=== PATIENT | female | born 1945 | race Caucasian/White ===

== ENCOUNTER 2024-01-30 18:17 | Emergency (ER) | payer MEDICARE, SELFPAY ==
[2024-01-30 18:21] VITALS: BP 167/100
--- NOTE | 2024-01-30 19:28 | ED.GENMED ---
History of Present Illness
General
Chief Complaint: Throat Problem
Source: patient
Exam Limitations: none
Time Seen by Provider: 01/30/24 19:15
History of Present Illness
History of Present Illness:
This is a 78 year old female that comes in with c/co sore throat. States that she was diagnosed with COVID and UTI as patient went to see the PCP yesterday. States that she had frequency and urgency. States that she was given Augmentin. States that
today she has a sore throat and she felt like she couldn't swallow her pills. States that she had two doses yesterday and this morning she vomited up her dose. States that she is nauseated and feels weak as she hasn't eaten. States that she has some
chest pressure, headache and diarrhea. Denies any fever, chills, SOB, abd pain, dizziness, urinary burning.
Past History
Past History
ED Past Medical History: Asthma, HTN and Hypercholesterolemia
ED Past Surgical History: None
Social History
Tobacco: Non-smoker
Alcohol: Occasional
Personal:
Living: alone
Family History
Family History: Unable to obtain
Review of Systems
Review of Systems
All Other Systems: ROS reviewed and negative except as documented in HPI and ROS
Constitutional: Reports no symptoms; Denies fever or chills
EENT: Reports sore throat
Respiratory: Reports no symptoms; Denies cough or trouble breathing
Cardiac: Reports other (Chest pressure)
ABD/GI: Reports nausea, vomiting and diarrhea; Denies abdominal pain
: Reports frequency and urgency; Denies dysuria
Musculoskeletal: Reports no symptoms
Skin: Reports no symptoms
Neurological: Reports headache; Denies dizzy
Psychiatric: Reports no symptoms
Phy Exam
General Physical Exam
General Presentation: no apparent distress
General age: appears stated age
General Skin: warm and dry
General Habitus: elderly
General Mental: alert
General Hydration: dry mucous membranes
ENT Exam
ENT Exam: TM's normal, neck supple and other (very slight redness of the pharynx. negative for lymphademopathy)
Eye Exam
Eye Exam: EOMI
Cardiovascular Exam
Cardiovascular Exam: regular rate/rhythm, no edema and normal peripheral pulses
Pulmonary Exam
Pulmonary Exam: lungs clear, no respiratory distress, no rales, chest non tender, no crackles, no rhonchi, no wheezing and no cough
Gastrointestinal Exam
Gastrointestinal Exam: normal bowel sounds, non tender, soft, no organomegaly, no pulsatile mass and non distended
Musculoskeletal Exam
Musculoskeletal Exam: full ROM and no edema
Skin Exam
Skin Exam: normal color, warm/dry, no rash and no petechia
Psychiatric Exam
Psychiatric Exam: normal mood/affect
Course
Orders/Labs/Results
Orders:
Orders
01/30/24 19:27
0.9% Sodium Chloride 1000 ml [Nss] 1,000 ml IV BOLUS
Amoxicillin 875 mg/Clav 125 mg [Augmentin 875 mg/125 mg] 1 tablet PO NOW STA
Dexamethasone Sod Phosphate [Decadron] 20 mg IV NOW STA
Ondansetron Injectable [Zofran] 4 mg IV NOW STA
01/30/24 19:30
Electrocardiogram (*1) Urgent
Reason for Study: Chest Pain
Other Reason for Exam: Due to COVID
EKG- Treatment ONCE
01/30/24 19:32
Acetaminophen 1000MG/100Ml [Ofirmev] 1,000 mg in 100 ml IV ONCE
Acetaminophen IV Indication:: ED Narcotic Naive Pt-ONCE
01/30/24 19:33
Ketorolac [Toradol] 30 mg IV NOW STA
01/30/24 20:38
Benzonatate [Tessalon Perles] 200 mg PO NOW STA
Vital Signs
Initial and Last Documented VS:
Initial Vital Signs
Temp Pulse Resp BP Pulse Ox
98.3 F 94 20 167/100 96
01/30/24 18:21 01/30/24 18:21 01/30/24 18:21 01/30/24 18:21 01/30/24 18:21
Last Documented Vital Signs
Temp Pulse Resp BP Pulse Ox
98.3 F 94 20 167/100 98
01/30/24 18:21 01/30/24 18:21 01/30/24 18:21 01/30/24 18:21 01/30/24 20:05
MDM/Problems Addressed
Differential Diagnosis Includes:
COVID sore throat,
MDM/Problems Addressed:
This is a 78 year old female that was seen by the PCP yesterday and diagnosed with COVID and UTI. Patient was given Augmentin and today she started with a sore throat and tried to swallow this medication and ended up vomiting it up. States that her
throat is sore.
will give IV fluids, Steroids, Medicate for pain and given antibiotic.
back into see patient. Patient states that she feels about the same. Will have nursing give medication and medicate patient for her cough. Will recheck.
patient able to get her medication down. Will discharge home.
Chronic conditions affecting care: Asthma
Acute Exacerbation and/or Progression of Chronic Illness:
COVID
*Pulse Oximetry
Patient hypoxic: no
*EKG
Interpreted by ED Provider?: Yes
Heart Rate: 78
Rate: normal
Rhythm: sinus
[place]: normal axis
Interval: normal interval and long QT
QRS Pattern: normal QRS
Ischemia: no ischemia
*Engineering Operator Interpretation
Rate: Engineering Operator- N/A
*Critical Care Note
Total Time (30-74mins, 75-104mins- exclusive of procedures): Not Applicable
ED Attending Note
-
Portions of this chart may have been created with voice recognition software.� Occasional wrong word or��sound alike� substitutions may have occurred due to the inherent limitations of voice recognition software.
Discharge Plan
Departure
Patient Disposition: Home (Routine Discharge)
Date of Disposition: 01/30/24
Time of Disposition: 21:31
Patient with high blood pressure during this ER visit?: Yes
Condition: Good
Covid-19: Not Applicable
Discharge Problem:
Sore throat (viral)
Instructions: Sore Throat, Adult (DC), BLOOD PRESSURE
Prescriptions:
New
benzonatate 100 mg capsule
100 mg PO Q6H PRN (Reason: Cough) Qty: 16 0RF
No Action
acetaminophen [Tylenol] 325 MG tablet
650 mg PO PRN PRN (Reason: RAMOS)
sulfamethoxazole-trimethoprim 1 EACH tablet
1 ea PO BID
aspirin [Aspir-81] 81 MG tablet,delayed release (DR/EC)
81 mg PO DAILY
simvastatin 20 MG tablet
20 mg PO QPM
bismuth subsalicylate [Goldstream Bismuth] 1 TABLET tablet,chewable
2 tab PO TIDPRN PRN (Reason: nausea)
sertraline [Zoloft] 50 MG tablet
50 mg PO PRN PRN (Reason: sleep)
Cranberry
1 tab PO DAILY
Metoprolol/Hctz 50/25mg
1 tab PO DAILY
Referrals:
Calin Maher MD [Family Provider] - Call in 1-3 days for appt
Activity Restrictions/Additional Instructions:
As discussed, your sore throat is most likely due to COVID. Please gargle with warm salt water as this will kill any bacteria. Please take your antibiotic as directed. increase your water intake to 8-8oz glasses daily. Follow up with the family
doctor as needed. You have been given a steroid here that will help reduce any inflammation. IF YOU HAVE ANY OTHER CONCERNS PLEASE RETURN TO THE EMERGENCY ROOM.
Interventions
Interventions:
*Risk Screen - Suicide Last Done: 01/30/24 19:30
*General Assessment Last Done: 01/30/24 19:30
*Neglect/Abuse Screening Last Done: 01/30/24 19:30
*ED COVID-19 Vaccine History Last Done: 01/30/24 19:30
ED-EENT Assessment Last Done: 01/30/24 20:05
ED- Pulmonary Assessment Last Done: 01/30/24 20:05
Discharge Date and Time
Print Language: [place]UADORE[place]
[2024-01-30 19:29] VITALS: BMI 18.4
[2024-01-30] MEDS: NSS 1000 IV (19:45)
[2024-01-30] MEDS: TORADOL 30 MG IV (19:50)
[2024-01-30] MEDS: ZOFRAN 4 MG IV (19:50)
[2024-01-30] MEDS: DECADRON 20 MG IV (19:58)
[2024-01-30] MEDS: OFIRMEV 100 IV (20:00)
[2024-01-30 21:03] VITALS: BP 157/83
[2024-01-30] MEDS: AUGMENTIN 875 MG/125 MG 1 TABLET PO (21:20)
[2024-01-30] MEDS: TESSALON PERLES 200 MG PO (21:22)
== END 2024-01-30 21:40 | disposition home or self-care (01) ==
LOC: EMR 18:17
PROVIDERS: EMERGENCY PHYSICIAN Emergency Medicine; FAMILY PHYSICIAN Family Medicine
DX: J02.8 Acute pharyngitis due to other specified organisms (principal); J45.909 Unspecified asthma, uncomplicated; I10 Essential (primary) hypertension; E78.00 Pure hypercholesterolemia, unspecified
CPT/HCPCS: 99283; 96374; 96375; 96361; 93005